=== PATIENT | male | born 1990 | race Caucasian/White ===

== ENCOUNTER 2021-01-06 19:07 | Emergency (ER) | payer OTHER ==
[~2021-01-06] VITALS: Ht 170.2 cm; Wt 24.9 kg
[2021-01-06 19:15] VITALS: BP_SYST 120
--- NOTE | 2021-01-06 19:15 | NUR ---
Patient triaged and placed in waiting room. VSS and patient appears in no acute distress at this time. Accompanied by FAM MEMBER, awaiting available bed, and MD notified of need for MSE.
[2021-01-06 21:53] LABS: BASOPHILS # (AUTO) 0.1 K/uL (0.0-0.2); BASOPHILS % (AUTO) 1.1 % (0.0-2.0); EOSINOPHILS # (AUTO) 0.3 K/uL (0.0-0.4); EOSINOPHILS % (AUTO) 3.4 % (0.0-4.0); HEMATOCRIT 41.6 % (36-54); HEMOGLOBIN 14.4 g/dL (14.0-18.0); LYMPHOCYTES # (AUTO) 2.3 K/uL (1.0-5.5); LYMPHOCYTES % (AUTO) 29.6 % (20.5-51.5); MEAN CORPUSCULAR HEMOGLOBIN 31 pg (27-31); MEAN CORPUSCULAR HGB CONC 35 % (32-36); MEAN CORPUSCULAR VOLUME 90 fL (79.0-98.0); MONOCYTES # (AUTO) 0.8 K/uL (0.0-1.0); MONOCYTES % (AUTO) 10.1 % (1.7-9.3); NEUTROPHILS # (AUTO) 4.3 K/uL (1.8-7.7); NEUTROPHILS % (AUTO) 55.8 % (40.0-70.0); PLATELET COUNT (AUTO) 209 K/uL (130-430); RED BLOOD CELL COUNT(AUTO) 4.63 MIL/uL (4.2-6.2); RED CELL DISTRIBUTION WIDTH 13.6 % (9.0-15.0); WHITE BLOOD COUNT (AUTO) 7.6 K/uL (4.8-10.8)
[2021-01-06 22:04] LABS: CALCIUM 8.6 mg/dL (8.4-11.0)
[2021-01-06 22:09] LABS: ALBUMIN 3.9 g/dL (3.4-4.8); TOTAL BILIRUBIN 0.2 mg/dL (0.0-1.0)
[2021-01-06 22:27] LABS: BILIRUBIN,URINE NEGATIVE (NEGATIVE); BLOOD, URINE NEGATIVE (NEGATIVE); CLARITY/URINE CLEAR (CLEAR); COLOR,URINE YELLOW (YELLOW); GLUCOSE,URINE NEGATIVE (NEGATIVE); KETONES,URINE NEGATIVE (NEGATIVE); LEUKOCYTE ESTERASE ,URINE NEGATIVE (NEGATIVE); NITRITE, URINE NEGATIVE (NEGATIVE); PROTEIN URINE NEGATIVE (NEGATIVE); UROBILINOGEN,URINE 0.2 (0.2-1.0)
--- NOTE | 2021-01-06 22:30 | NUR ---
ER examining patient in the triage.
[2021-01-06 23:03] LABS: AMYLASE 66 U/L (0-100); LIPASE 175 U/L (73-393)
--- NOTE | 2021-01-06 23:13 | NUR ---
Patient to ER bed 02 to gown for evaluation. Side rails up.
--- NOTE | 2021-01-06 23:16 | NUR ---
Patient BIB by family from home. C/O abdominal pain x 1 week. Patient reported, had abdominal pain for a week, seen by MD at Urgent care, recommended to eval in ER. R/O Appendecitis. A/O,X4, no N/V/D, no pain.
[2021-01-06 23:34] LABS: PROTHROMBIN TIME 10.6 SECS (9.5-12.5)
--- NOTE | 2021-01-07 00:30 | NUR ---
Dr. Casillas at bedside and explain lab results.
[2021-01-07] MEDS ORDERED: PRO40 PO (00:40)
[2021-01-07 00:46] VITALS: BP_SYST 120
--- NOTE | 2021-01-07 00:46 | NUR ---
Patient given written and verbal discharge instructions and verbalizes understanding. ER MD discussed with patient the results and treatment provided. Patient in stable condition. ID arm band removed. Rx of Protonix given. Patient educated on pain management and to follow up with PMD. Pain Scale 0/10. Opportunity for questions provided and answered. Medication side effect fact sheet provided.
== END 2021-01-07 00:46 | disposition home or self-care (01) ==
LOC: SED 19:07
DX: K29.70 Gastritis, unspecified, without bleeding (principal)
CPT/HCPCS: 36415; 76376; 80053; 81003; 82150; 83690; 85025; 85610-TC; 99284